=== PATIENT | female | born 1985 | race Caucasian/White ===

== ENCOUNTER 2016-06-24 01:45 | Inpatient (IN) | payer MEDICAID ==
[2016-06-24] VITALS (9 sets, daily range): BP systolic 81–120; BP diastolic 53–69; PULSE 68–86; RESP 18; Ht 165.1 cm; Wt 65.0 kg
[~2016-06-24] VITALS: Ht 165.1 cm; Wt 65.0 kg
[~2016-06-24 01:45] MED LIST: PREN1TAB79 PO
[2016-06-24] MEDS ORDERED: LACTATED RINGER'S 1,000 ML IV SCH (01:54)
[2016-06-24] MEDS ORDERED: OXYTOCIN 30 UNITS/LR 500 ML IV SCH ×2 (02:00)
[2016-06-24] MEDS ORDERED: LIDOCAINE 1% (MPF) 30 ML INJ INJ PRN (02:00)
[2016-06-24] MEDS ORDERED: OXYTOCIN 30 UNITS/LR 500 ML IV PRN ×2 (02:00→02:30)
[2016-06-24] MEDS ORDERED: CARBOPROST 250 MCG INJ IM PRN ×2 (02:00→02:30)
[2016-06-24] MEDS ORDERED: LACTATED RINGER'S 1,000 ML IV PRN (02:00)
[2016-06-24] MEDS ORDERED: OXYTOCIN 10 UNIT INJ IM PRN (02:00)
[2016-06-24] MEDS ORDERED: MISOPROSTOL 200 MCG TAB PR PRN ×2 (02:00→02:30)
[2016-06-24] MEDS ORDERED: METHYLERGONOVINE 0.2 MG INJ IM PRN ×2 (02:00→02:30)
--- NOTE | 2016-06-24 02:00 | HP ---
Date/Time of Note Date/Time of Note DATE: 06/24/16 TIME: 01:59 OB - History Hx of Present Free Text/Dictation 30 yo P1 @ term, presented FD to ER, imminent delivery see delivery note Past Family/Social History * Past Medical, Surgical, Family and Obstetric Histories reviewed from chart. OB Admission Exam Physical Exam Cervical Dilatation: 10cm Station: +3 OB Assessment/Plan Other Assessment: patient arrived FD Other plan: Patient delivered within minutes of arrival ROMERO CROCKER MD Jun 24, 2016 02:00
[2016-06-24] MEDS: LACTATED RINGER'S 1,000 ML IV* SCH ×2 (02:02→08:25)
--- NOTE | 2016-06-24 02:02 | LDN ---
Date/Time of Note Date/Time of Note DATE: 06/24/16 TIME: 02:00 Delivery Summary s/p precipitous , live female 9/9 no nuchal cord spontaneous delivery of placenta small abrasions of labia, which were hemostatic Perineum intact?: Yes Anesthesia type: None Estimated blood loss: 200 Sponge & Needle done & correct: Yes All needle counts correct: Yes Problems: Delivery Information Sex Infant Sex: female Apgars 1 Minute: 9 5 Minute: 9 Suctioning Nose & mouth suctioned at vandana: Yes Umbilical Cord Umbilical cord with: 3 Vessels Cord presentations: no nuchal cord Cord Blood was obtained: Yes Mother & Baby Disposition Disposition Mom & Baby to Maternity; Good: Yes ROMERO CROCKER MD Jun 24, 2016 02:02
--- NOTE | 2016-06-24 02:14 | TRIAGE ---
OB Triage Datetime Report Generated by CPN: 06/24/2016 02:14 Datetime: 06/24/2016 02:00 Assessment Type: Admission Assessment Vaginal Bleeding: None Maternal Assessment Level of Consciousness: Fully Conscious DTR's/Clonus: DTRs 2+; No Clonus Headache: Denies Blurred Vision: No Respiratory Effort: Unlabored; Regular Rhythm; Equal Expansion Breath Sounds, Left: Clear and Equal Breath Sounds, Right: Clear and Equal Nausea/Vomiting: Denies RUQ Epigastric Pain: Denies Facial Edema: None Fall Risk Assessment History of Falling: (0) No Secondary Diagnosis: (0) No Ambulatory Aid: (0) Bedrest/Nurse Assist IV Therapy: (0) No Gait: (0) Normal/Bedrest/Immobile Mental Status: (0) Oriented to Own Ability Fall Score: 0 Fall Risk Score Definition: No Risk: No action required Pain Assessment Pain Scale: 10 Pain Presence: Intermittent Pain Type: Sharp Pain Location: Abdomen Datetime: 06/24/2016 01:50 Time of Arrival: 06/24/2016 01:53 EGA: 39.0 Arrived By: Ambulatory Arrived From: Home Datetime: 06/24/2016 01:35 Time of Arrival: 06/24/2016 01:35 EGA: 39.0 Arrived By: Wheelchair Arrived From: Home Chief Complaint: UTERINE CONTRACTION AND SROM Movement: Present Contractions: Regular Rupture of Membranes: Ruptured Vaginal Bleeding: None Vaginal Discharge: Denies Recent Sexual Intercouse: Denies Abdominal Trauma: Not Applicable Patient Complaints: Contractions; Other Time Provider Notified: 06/24/2016 01:40 Provider Notified: OBI Initial Plan: SVE, EFM Datetime: 04/03/2016 00:00 Stage of : OB Triage Labor Evaluation Frequency: 0 Monitor Mode: External Heart Rate FHR Baseline Rate: 130 Monitor Mode: External US FHR Baseline Changes: No Baseline Change Variability: Moderate 6-25 bpm Accelerations: 15X15 Decelerations: None Category: Category I Pain Assessment Pain Scale: 0 Pain Goal: 4 Datetime: 04/02/2016 23:00 Stage of : OB Triage Labor Evaluation Frequency: 0 Monitor Mode: External Heart Rate FHR Baseline Rate: 130 Monitor Mode: External US FHR Baseline Changes: No Baseline Change Variability: Moderate 6-25 bpm Accelerations: 15X15 Decelerations: None Category: Category I Pain Assessment Pain Scale: 2 Pain Presence: Intermittent Pain Type: Cramping Pain Location: Abdomen Pain Goal: 3 Pain Relief Measures: Comfort Measures Datetime: 04/02/2016 22:12 Vaginal Exam Membrane Status: Intact Datetime: 04/02/2016 22:00 Stage of : OB Triage Labor Evaluation Frequency: 0 Monitor Mode: External Heart Rate FHR Baseline Rate: 130 Monitor Mode: External US FHR Baseline Changes: No Baseline Change Variability: Moderate 6-25 bpm Accelerations: 15X15 Decelerations: None Category: Category I Pain Assessment Pain Scale: 2 Pain Presence: Intermittent Pain Type: Cramping Pain Location: Abdomen Pain Goal: 3 Pain Relief Measures: Comfort Measures Datetime: 04/02/2016 20:15 Comments: US @ bedside Datetime: 04/02/2016 20:00 Stage of : OB Triage Labor Evaluation Frequency: 0 Monitor Mode: External Heart Rate FHR Baseline Rate: 125 Monitor Mode: External US FHR Baseline Changes: No Baseline Change Variability: Moderate 6-25 bpm Accelerations: 15X15 Decelerations: None Category: Category I Pain Assessment Pain Scale: 2 Pain Presence: Intermittent Pain Type: Cramping Pain Location: Abdomen Pain Goal: 3 Pain Relief Measures: Comfort Measures Datetime: 04/02/2016 18:34 Labor Evaluation Frequency: 0/hr Monitor Mode: External Heart Rate FHR Baseline Rate: 135 Monitor Mode: External US Variability: Moderate 6-25 bpm Accelerations: 15X15 Decelerations: None Datetime: 04/02/2016 17:05 Heart Rate FHR Baseline Rate: 135 Monitor Mode: External US Variability: Moderate 6-25 bpm Decelerations: None Comments: ega 27.1 Datetime: 04/02/2016 16:43 Pain Assessment Comments: pt. denies flank pain and any rebound tenderness Datetime: 04/02/2016 16:41 Assessment Type: Triage Maternal Assessment Level of Consciousness: Fully Conscious DTR's/Clonus: DTRs 2+; No Clonus Headache: Denies Blurred Vision: No Respiratory Effort: Unlabored; Regular Rhythm; Equal Expansion Breath Sounds, Left: Clear and Equal Breath Sounds, Right: Clear and Equal Nausea/Vomiting: Denies RUQ Epigastric Pain: Denies Lower Extremities Edema: None Degree: None Upper Extremities Edema: None Facial Edema: None Fall Risk Assessment History of Falling: (0) No Secondary Diagnosis: (0) No Ambulatory Aid: (0) Bedrest/Nurse Assist IV Therapy: (0) No Gait: (0) Normal/Bedrest/Immobile Mental Status: (0) Oriented to Own Ability Fall Score: 0 Fall Risk Score Definition: No Risk: No action required Datetime: 04/02/2016 16:40 Time of Arrival: 04/02/2016 16:25 EGA: 27.1 Chief Complaint: uc's starting two [place] ago Movement: Present Contractions: Irregular Time Contractions Began: 04/02/2016 14:30 Rupture of Membranes: Denies Vaginal Bleeding: None Vaginal Discharge: Denies Recent Sexual Intercouse: Denies Abdominal Trauma: Not Applicable Patient Complaints: Contractions Time Provider Notified: 04/02/2016 16:55 Provider Notified: harsha cruz [facility] Initial Plan: ffn ua Datetime: 04/02/2016 16:39 Time of Arrival: 04/02/2016 16:25 Arrived By: Wheelchair Arrived From: Emergency Dept Datetime: 04/02/2016 16:38 Monitor Mode: Palpation Resting Tone [place]: Relaxed Datetime: 04/02/2016 16:37 Maternal Assessment Level of Consciousness: Fully Conscious Headache: Denies Blurred Vision: No Nausea/Vomiting: Denies RUQ Epigastric Pain: Denies Facial Edema: None Pain Assessment Pain Scale: 2 Pain Presence: Intermittent Pain Type: Contraction Pain Location: Abdomen Pain Assessment Comments: lower ligament area
[2016-06-24] MEDS ORDERED: LANOLIN 7 GM TUBE TOP PRN (02:30)
[2016-06-24 02:41] LABS: BASOPHIL # 0.1 10^3/ul (0.0-0.1); BASOPHILS % 0.4 % (0.0-2.0); EOSINOPHILS # 0.1 10^3/ul (0.0-0.5); EOSINOPHILS % 0.5 % (0.0-7.0); HEMATOCRIT 38.4 % (37.0-47.0); HEMOGLOBIN 13.1 g/dl (12.0-16.0); LYMPHOCYTES # 4.4 10^3/ul (0.8-2.9); LYMPHOCYTES % 29.5 % (15.0-51.0); MEAN CORPUSCULAR HEMOGLOBIN 29.5 pg (29.0-33.0); MEAN CORPUSCULAR HGB CONC 34.2 g/dl (32.0-37.0); MEAN CORPUSCULAR VOLUME 86.2 fl (82.0-101.0); MEAN PLATELET VOLUME 6.7 fl (7.4-10.4); MONOCYTE # 0.9 10^3/ul (0.3-0.9); MONOCYTES % 6.1 % (0.0-11.0); NEUTROPHIL # 9.5 10^3/ul (1.6-7.5); NEUTROPHILS % 63.5 % (39.0-77.0); PLATELET COUNT 308 10^3/UL (140-440); RED BLOOD COUNT 4.45 10^6/ul (4.20-5.40); RED CELL DISTRIBUTION WIDTH 14.5 % (11.5-14.5); UNCORRECTED WBC 14.9 10^3/ul (4.8-10.8); WHITE BLOOD COUNT 14.9 10^3/ul (4.8-10.8)
[2016-06-24 02:42] LABS: CONDITION 1
[2016-06-24 02:55] LABS: INR 0.93; PROTIME 12.5 Sec (12.2-14.2)
[2016-06-24 02:56] LABS: PARTIAL THROMBOPLASTIN TIME 25.5 Sec (25.0-35.0)
[2016-06-24] MEDS: IBUPROFEN 600 MG TAB PO SCH ×3 (03:43→17:49)
[2016-06-24 07:38] LABS: BASOPHILS % 0.2 % (0.0-2.0); EOSINOPHILS % 0.2 % (0.0-7.0); HEMATOCRIT 37.5 % (37.0-47.0); HEMOGLOBIN 12.8 g/dl (12.0-16.0); LYMPHOCYTES # 1.7 10^3/ul (0.8-2.9); LYMPHOCYTES % 10.6 % (15.0-51.0); MEAN CORPUSCULAR HEMOGLOBIN 29.6 pg (29.0-33.0); MEAN CORPUSCULAR HGB CONC 34.2 g/dl (32.0-37.0); MEAN CORPUSCULAR VOLUME 86.5 fl (82.0-101.0); MONOCYTE # 0.7 10^3/ul (0.3-0.9); NEUTROPHIL # 13.9 10^3/ul (1.6-7.5); PLATELET COUNT 288 10^3/UL (140-440); RED BLOOD COUNT 4.34 10^6/ul (4.20-5.40); RED CELL DISTRIBUTION WIDTH 14.3 % (11.5-14.5); UNCORRECTED WBC 16.4 10^3/ul (4.8-10.8); WHITE BLOOD COUNT 16.4 10^3/ul (4.8-10.8)
[2016-06-24 08:03] LABS: CONDITION 1
[2016-06-24] MEDS: SENNA/DOCUSATE NA (8.6MG/50MG) TAB PO SCH ×2 (08:27→21:26)
[2016-06-25 00:15] VITALS: BP 116/65; PULSE 63; RESP 18
[2016-06-25] MEDS: IBUPROFEN 600 MG TAB PO SCH ×5 (00:20→23:48)
[2016-06-25 03:52] VITALS: BP 112/53; PULSE 70; RESP 18
[2016-06-25 08:00] VITALS: BP 98/57; PULSE 67; RESP 18
[2016-06-25] MEDS: SENNA/DOCUSATE NA (8.6MG/50MG) TAB PO SCH ×2 (10:26→20:43)
[2016-06-25 11:30] VITALS: BP 98/57; PULSE 67; RESP 18
[2016-06-25 11:52] LABS: BASOPHILS % 0.3 % (0.0-2.0); EOSINOPHILS # 0.1 10^3/ul (0.0-0.5); EOSINOPHILS % 0.7 % (0.0-7.0); HEMATOCRIT 36.1 % (37.0-47.0); HEMOGLOBIN 12.2 g/dl (12.0-16.0); LYMPHOCYTES % 19.8 % (15.0-51.0); MEAN CORPUSCULAR HEMOGLOBIN 29.6 pg (29.0-33.0); MEAN CORPUSCULAR HGB CONC 33.8 g/dl (32.0-37.0); MEAN CORPUSCULAR VOLUME 87.6 fl (82.0-101.0); MEAN PLATELET VOLUME 6.5 fl (7.4-10.4); MONOCYTE # 0.7 10^3/ul (0.3-0.9); MONOCYTES % 7.1 % (0.0-11.0); NEUTROPHIL # 7.4 10^3/ul (1.6-7.5); NEUTROPHILS % 72.1 % (39.0-77.0); PLATELET COUNT 291 10^3/UL (140-440); RED BLOOD COUNT 4.12 10^6/ul (4.20-5.40); RED CELL DISTRIBUTION WIDTH 14.3 % (11.5-14.5); UNCORRECTED WBC 10.3 10^3/ul (4.8-10.8); WHITE BLOOD COUNT 10.3 10^3/ul (4.8-10.8)
[2016-06-25 11:53] LABS: CONDITION 1
--- NOTE | 2016-06-25 14:43 | PN ---
Date/Time of Note Date/Time of Note DATE: 06/25/16 TIME: 14:42 OB Subjective Subjective Subjective day 1 Afebrile vital sign is stable abdomen soft uterus firm lochia normal extremity normal Laboratory Tests Test 06/25/16 11:34 Basophils # 0.010^3/ul Basophils % 0.3% Blood Morphology Comment Eosinophils # 0.110^3/ul Eosinophils % 0.7% Hematocrit 36.1% Hemoglobin 12.2g/dl Lymphocytes # 2.010^3/ul Lymphocytes % 19.8% Mean Corpuscular Hemoglobin 29.6pg Mean Corpuscular Hemoglobin Concent 33.8g/dl Mean Corpuscular Volume 87.6fl Mean Platelet Volume 6.5fl Monocytes # 0.710^3/ul Monocytes % 7.1% Neutrophils # 7.410^3/ul Neutrophils % 72.1% Nucleated Red Blood Cells # 0.010^3/ul Nucleated Red Blood Cells % 0.0/100WBC Platelet Count 12249^3/UL Red Blood Count 4.1210^6/ul Red Cell Distribution Width 14.3% White Blood Count 10.310^3/ul Current Medications Medications (Trade) Dose Ordered Sig/Jj Route PRN Reason Start Time Stop Time Status Last Admin Dose Admin Lactated Ringer's (Lr) 1,000 ml @ 125 mls/hr Q8H IV 06/24/16 01:54 06/24/16 07:49 DC Lidocaine 30 ml 30 ml ONCE PRN INJ EPISIOTOMY/TEARING 06/24/16 02:00 Oxytocin/Lactated Ringer's 500 ml @ 125 mls/hr ONCE -MAY REPEAT X1 IV 06/24/16 02:00 06/24/16 01:45 Oxytocin/Lactated Ringer's 500 ml @ 125 mls/hr ONCE IV 06/24/16 02:00 06/24/16 07:49 DC 06/24/16 03:04 Lactated Ringer's 1,000 ml @ 2,000 mls/hr Q30M PRN IV PRE-EPIDURAL BOLUS 06/24/16 02:00 06/24/16 07:49 DC Oxytocin/Lactated Ringer's 500 ml @ 0 mls/hr ONCE PRN IV For Hemorrhage Management 06/24/16 02:00 Methylergonovine Maleate (Methergine) 0.2 mg ONCE PRN IM VAGINAL BLEEDING 06/24/16 02:00 Carboprost Tromethamine (Hemabate) 250 mcg ONCE PRN IM VAGINAL BLEEDING 06/24/16 02:00 Misoprostol (Cytotec) 1,000 mcg ONCE PRN [place] VAGINAL BLEEDING 06/24/16 02:00 Oxytocin 10 units 10 units MAY REPEAT X1 PRN IM BLEEDING 06/24/16 02:00 Lactated Ringer's (Lr) 1,000 ml @ 125 mls/hr Q8H IV* 06/24/16 02:02 06/24/16 16:16 DC 06/24/16 08:25 Ibuprofen (Motrin) 600 mg Q6 PO 06/24/16 06:00 06/25/16 12:18 Senna/Docusate Sodium (Senokot-S) 1 tab BID PO 06/24/16 09:00 06/25/16 10:26 Lanolin 1 applic 1 applic BEDSIDE MEDICATION PRN TOP BEDSIDE FOR GATO TO NIPPLES 06/24/16 02:30 06/24/16 05:52 Oxytocin/Lactated Ringer's 500 ml @ 0 mls/hr ONCE PRN IV For Hemorrhage Management 06/24/16 02:30 Methylergonovine Maleate (Methergine) 0.2 mg ONCE PRN IM VAGINAL BLEEDING 06/24/16 02:30 Carboprost Tromethamine (Hemabate) 250 mcg ONCE PRN IM VAGINAL BLEEDING 06/24/16 02:30 Misoprostol (Cytotec) 1,000 mcg ONCE PRN [place] VAGINAL BLEEDING 06/24/16 02:30 OSEAS REMY MD Jun 25, 2016 14:43
[2016-06-25 15:40] VITALS: BP 103/59; RESP 18
[2016-06-25 20:00] VITALS: BP 105/59; PULSE 71; RESP 18
[2016-06-26 04:00] VITALS: BP 117/70; PULSE 64; RESP 18
[2016-06-26] MEDS: IBUPROFEN 600 MG TAB PO SCH ×2 (05:48→12:04)
[2016-06-26 08:00] VITALS: BP 107/62; PULSE 92; RESP 18
[2016-06-26] MEDS: SENNA/DOCUSATE NA (8.6MG/50MG) TAB PO SCH (08:53)
--- NOTE | 2016-06-26 12:08 | PD.PPDC ---
BIOINFORMATICS SCIENTIST Discharge Instruction Condition Patient Condition: Good Activity/Restrictions Restrictions: No Exercising No Lifting No Driving No Sexual Activity Nothing in the Vagina No [place] No Tampons, douche Follow-up Follow-up with Physician: 2, Week/Weeks Return to clinic for ENGINEERING EXECUTIVE Instructions: Fever greater than 101 Worsening abdominal pain Excessive Vaginal Bleeding More than 2 pads per hour Unable to tolerate diet OB Instructions: Breast Tenderness Blurried Vision Headache OSEAS REMY MD Jun 26, 2016 12:07
--- NOTE | 2016-06-26 12:10 | DS ---
Date/Time of Note Date/Time of Note DATE: 06/26/16 TIME: 12:08 Obstetrical Discharge Record Final Diagnosis Final Diagnosis: Term delivered Vaginal Delivery Obstetrical Delivery: Spontaneous Condition on Discharge Physical Assessment Last Vitals: Post day2 Afebrile vital sign is stable abdomen soft uterus firm lochia normal extremity normal Voiding: Yes Bowel Movement: Yes Breast: Filling Calf Tenderness: No Patient Condition: Good OSEAS REMY MD Jun 26, 2016 12:09
== END 2016-06-26 13:40 | disposition home or self-care (01) | DRG 775 ==
LOC: L-D 01:45 → OBT 01:45 → L-D 01:46 → OBT 01:46 → L-D 02:43 → PP1 04:43
PROVIDERS: ADMIT Obstetrics & Gynecology; ATTEND Obstetrics & Gynecology
PROC: 10E0XZZ Delivery of Products of Conception, External Approach (ICD-10-PCS; principal; 2016-06-24)
DX: O99.02 Anemia complicating childbirth (principal); Z37.0 Single live birth; Z3A.38 38 weeks gestation of pregnancy
CPT/HCPCS: 85025; 85610; 85730; 86592; 86900; 86901; 87340; G0463; J2590; J7120